=== PATIENT | male | born 1965 | race Caucasian/White ===

== ENCOUNTER 2018-06-22 00:11 | Emergency (ER) | payer SELFPAY ==
[~2018-06-22] VITALS: Ht 175.3 cm; Wt 81.7 kg
[~2018-06-22 00:11] MED LIST: ASPIRIN EC325 MG PO; AUGMENTIN 875-1 EACH PO; FIBER500 MG PO; FLONASE ALLERG9.9 ML NAS; IBUPROFEN600 MG PO; LISINOPRIL-HCT1 EAC2 PO; MELOXICAM15 MG PO; OMEPRAZOLE20 MG PO; SENNA8.6 MG PO; SERTRALINE HCL100 MG PO; TRAZODONE HCL50 MG PO
== END 2018-06-22 01:03 | disposition home or self-care (01) ==
LOC: ED 00:11
DX: S60.212A Contusion of left wrist, initial encounter (principal); S90.32XA Contusion of left foot, initial encounter; I10 Essential (primary) hypertension; Z86.19 Personal history of other infectious and parasitic diseases; F17.200 Nicotine dependence, unspecified, uncomplicated; Z88.5 Allergy status to narcotic agent; Z79.82 Long term (current) use of aspirin; Z79.899 Other long term (current) drug therapy; Y04.0XXA Assault by unarmed brawl or fight, initial encounter
CPT/HCPCS: 73110; 73630; 99283